=== PATIENT | male | born 1955 | race Caucasian/White ===

== ENCOUNTER 2016-09-11 11:40 | Emergency (ER) | payer OTHER ==
[~2016-09-11] VITALS: Ht 177.8 cm; Wt 79.4 kg
[~2016-09-11 11:40] MED LIST: ABILIFY 5MG5 MG PO; BACTRIM DS 8001 TAB PO; NEXIUM20 MG PO
[2016-09-11] MEDS ORDERED: NAPROSYN500 M1 PO (13:07)
--- NOTE | 2016-09-11 13:08 | ED SKIN/ALLERGY COMPLAINT ---
History of Present Illness General Chief Complaint: Skin Rash/ Abcess Stated Complaint: PAINFULL CALLUS ON LT FOOT Source: patient Exam Limitations: no limitations Vital Signs & Intake/Output Vital Signs & Intake/Output Vital Signs Date Time Temp Pulse Resp B/P Pulse O2 O2 Flow FiO2 Ox Delivery Rate 09/11 1314 100 150/86 09/11 1155 98.1 96 18 160/82 99 Room Air Allergies Coded Allergies: MDX - Meperidine (From Meperidine Hydrochloride) (10/08/10) MDX - Penicillin G (From Penicillin G Potassium) (10/08/10) Reconcile Medications Aripiprazole (Abilify) 5 MG TABLET 1 TAB PO DAILY ANXIETY (Reported) Esomeprazole Magnesium (Nexium) 20 MG ECC 1 CAP PO DAILY GI (Reported) Naproxen (Naprosyn) 500 MG TABLET 1 TAB PO BID PRN PAIN Sulfamethoxazole/Trimethopri (Bactrim Ds 800 MG-160 MG) 1 TAB TAB 1 TAB PO BID CELLULITIS Triage Note: PT STATES THAT HE HAS CALLUS ON HIS L FOOT THAT HE WOULD LIKE TO HAVE LOOKED AT Triage Nurses Notes Reviewed? yes Onset: 1 MONTH Duration: worse persistent since (1 WEEK) Timing: recent history Severity: moderate Severity Numbers: 7 Location: extremities Possible Factors: no cause identified No Modifying Factors: none HPI: Patient is a 61-year-old male presenting to the emergency department with chief complaint of calluses forming on the bottom of his over the past month on his left foot. Pain is worse with ambulation. Denies any trauma. Denies taking anything out symptoms. 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 Denies any nausea or vomiting fevers or chills chest pain or shortness of breath. (AKIL MCCORMICK) Past History Travel History Traveled to [place] past 21 day No Medical History Any Pertinent Medical History? see below for history Neurological: NONE EENT: NONE Cardiovascular: NONE Respiratory: NONE Gastrointestinal: NONE Hepatic: hepatitis C Renal: NONE Musculoskeletal: NONE Psychiatric: NONE Endocrine: NONE Blood Disorders: NONE Cancer(s): NONE COMPLIANCE LEAD/Reproductive: NONE Surgical History Surgical History: non-contributory Psychosocial History What is your primary language Urdu Tobacco Use: Current Daily Use Daily Tobacco Use Amount/Type: => 5 Cigarettes daily ETOH Use: denies use Illicit Drug Use: denies illicit drug use Family History Hx Contributory? No (AKIL MCCORMICK) Review of Systems Review of Systems Constitutional: Reports: no symptoms. Comments Review of systems: See HPI, All other systems negative. Constitutional, no chills fever or weight loss HEENT: No visual changes no sore throat no congestion Cardiovascular: No chest pain ,palpitation Skin, no jaundice Respiratory: No dyspnea cough sputum or hemoptysis GI: No nausea no vomiting Muscle skeletal: no back pain, no neck pain, Neurologic: No numbness no confusion Psych: No stress anxiety Immunology: No splenectomy or history of AIDS (AKIL MCCORMICK) Physical Exam Physical Exam General Appearance: well developed/nourished, no apparent distress, alert, awake , comfortable Comments: Well-developed well-nourished no apparent distress. HEENT: Atraumatic, extraocular motion intact Neck: Supple, no lymphadenopathy Back: Nontender Respiratory: No respiratory distress Extremities: No edema, full range of motion Skin: Large callus formation at the base of the left fifth toe and left first toe. Mildly tender to palpation. No surrounding erythema. No discharge. Nonfluctuant. Firm dried skin. Neuro: Alert and oriented x3 Psych: Mood affect normal, normal memory normal judgment. (AKIL MCCORMICK) Progress Differential Diagnosis: CORD, CALLUS, ABSCESS, CELLULITIS Plan of Care: Patient will follow by Podiatry. He has large callus formation. Educated on keeping his skin soft to help with pain. Patient nontoxic. He requesting pain medication. Given naproxen. (AKIL MCCORMICK) Departure Departure Time of Disposition: 1305 Disposition: HOME OR SELF CARE Condition: Stable Clinical Impression Primary Impression: [place] or callus Referrals: YNES CALDERA APRN (PCP/Family) TRINIDAD HART DPM Additional Instructions: Follow-up with podiatry following Friday. Take NAPROXEN pain. Keep area clean. He can try using [id number] products to help reduce skin buildup. Departure Forms: Customer Survey General Discharge Information Prescriptions: Current Visit Scripts Naproxen (Naprosyn) 1 TAB PO BID PRN PAIN #20 TAB (AKLI MCCORMICK) PA/GUSSET EDGER Co-Sign Statement Statement: ED Attending supervision documentation- x I saw and evaluated the patient. I have also reviewed all the pertinent lab results and diagnostic results. I agree with the findings and the plan of care as documented in the PA's/GUSSET EDGER's documentation. [] I have reviewed the ED Record and agree with the PA's/GUSSET EDGER's documentation. [] Additions or exceptions (if any) to the PAs/GUSSET EDGER's note and plan are summarized below: [] (APRIL HARDING,ARMANDO)
[2016-09-11 13:14] VITALS: BP 150/86
== END 2016-09-11 13:15 ==
LOC: ERH 11:40
DX: L84 Corns and callosities (principal)